=== PATIENT | female | born 1985 | race African-American/Black ===

== ENCOUNTER → 2024-09-29 11:07 | Outpatient (REF) | payer OTHER, SELFPAY ==
[2024-10-01 04:10] LABS: Quantiferon Mitogen minus NIL 8.61 IU/mL; Quantiferon NIL 0.01 IU/mL; Quantiferon Plus TB1 minus NIL 0.01 IU/mL (<=0.34); Quantiferon TB Gold Plus Negative (Negative)
== END ==
LOC: REG 11:07
PROVIDERS: ATTENDING PHYSICIAN Nurse Practitioner Family
DX: Z23 Encounter for immunization (principal)
CPT/HCPCS: 36415; 86480; 86735